=== PATIENT | male | born 1955 | race Caucasian/White ===

== ENCOUNTER 2023-07-19 15:38 | Inpatient (IN) | payer MEDICAID ==
[~2023-07-19] VITALS: Ht 175.3 cm; Wt 75.5 kg
[2023-07-19 16:23] LABS: BASOPHILS % (AUTO) 0.2 % (0.0-2.0); EOSINOPHILS % (AUTO) 0.1 % (0.0-6.0); HEMATOCRIT 41 % (39-51); HEMOGLOBIN 13.7 g/dL (13.5-17.5); LYMPHOCYTES # (AUTO) 0.8 K/uL (0.8-4.8); LYMPHOCYTES % (AUTO) 6.3 % (20.0-44.0); MEAN CORPUSCULAR HEMOGLOBIN 35 PG (26.0-33.0); MEAN CORPUSCULAR HGB CONC 34 g/dl (31.0-36.0); MEAN CORPUSCULAR VOLUME 103 fL (80-96); MONOCYTES # (AUTO) 2.1 K/uL (0.1-1.30); MONOCYTES % (AUTO) 15.6 % (2.0-12.0); NEUTROPHILS # (AUTO) 10.3 K/uL (1.8-8.9); NEUTROPHILS % (AUTO) 77.8 % (43.0-81.0); PLATELET COUNT (AUTO) 136 K/uL (150-450); RED BLOOD CELL COUNT(AUTO) 3.95 MIL/uL (4.5-6.0); RED CELL DISTRIBUTION WIDTH 13.2 % (11.5-15.0); WHITE BLOOD COUNT (AUTO) 13.3 K/uL (4.3-11.0)
[2023-07-19 16:35] LABS: CALCIUM, SERUM 8.5 mg/dL (8.5-10.1); CARBON DIOXIDE 30 mmol/L (21-32); CHLORIDE 102 mmol/L (98-107); CREATININE 1.8 mg/dL (0.6-1.3); GLUCOSE 120 mg/dL (74-106); POTASSIUM 4.5 mmol/L (3.5-5.1); SODIUM SERUM 138 mmol/L (136-145); UREA NITROGEN, BLOOD 69 mg/dL (7-18)
[2023-07-19 16:37] LABS: INR 0.97 (0.91-1.10); PARTIAL THROMBOPLASTIN TIME 26.5 SEC (24.3-34.3)
[2023-07-19 16:41] LABS: ALANINE AMINOTRANSFERASE 21 U/L (12-78); ALBUMIN 2.6 g/dL (3.4-5.0); ALKALINE PHOSPHATASE 46 U/L (46-116); ASPARTATE AMINOTRANSFERASE 21 U/L (15-37); BILIRUBIN,DIRECT 0.2 mg/dL (0.0-0.2); BILIRUBIN,TOTAL 0.5 mg/dL (0.2-1.0); TOTAL PROTEIN, SERUM 6.2 g/dL (6.4-8.2)
[2023-07-19 17:43] LABS: BAND % (MANUAL) 2 % (0.0-5.0); LYMPHOCYTES % (MANUAL) 15 % (16-48); MONOCYTES % (MANUAL) 14 % (0-11.0); NEUTROPHILS % (MANUAL) 69 (42-76); PLATELET ESTIMATE DECREASED
[2023-07-19] MEDS ORDERED: ACET325T53 PO (18:33)
[2023-07-19] MEDS ORDERED: ALBU2.5V38 IH (18:33)
[2023-07-19] MEDS ORDERED: LORA2TAB95 PO (18:33)
[2023-07-19] MEDS ORDERED: DONE10TA11 PO (18:33)
[2023-07-19] MEDS ORDERED: ASPI-1420 PO (18:33)
[2023-07-19] MEDS ORDERED: LORA2DIS4 IM (18:33)
[2023-07-19] MEDS ORDERED: AMLO-212 PO (18:33)
[2023-07-19] MEDS ORDERED: LEVE500T20 PO (18:34)
[2023-07-19] MEDS ORDERED: ALBU18HF2 IH (18:34)
[2023-07-19] MEDS ORDERED: MAGN400O6 PO (18:34)
[2023-07-19] MEDS ORDERED: BISA10SU11 RC (18:34)
[2023-07-19] MEDS ORDERED: ELVI1TAB3 PO (18:34)
[2023-07-19] MEDS ORDERED: FINA5TAB11 PO (18:34)
[2023-07-19] MEDS ORDERED: AMIN30LI2 PO (18:34)
[2023-07-19] MEDS ORDERED: LOSA1TAB15 PO (18:34)
[2023-07-19] MEDS ORDERED: POTA20TA83 PO (18:34)
[2023-07-19] MEDS ORDERED: PROP10TA10 PO (18:34)
[2023-07-19] MEDS ORDERED: LACO200T2 PO (18:34)
[2023-07-19] MEDS ORDERED: BENZ1TAB7 PO (18:34)
[2023-07-19] MEDS ORDERED: MAG30ORA14 PO (18:34)
[2023-07-19] MEDS ORDERED: URSO300C12 PO (18:34)
[2023-07-19] MEDS ORDERED: RISP2TAB5 PO (18:34)
[2023-07-19] MEDS ORDERED: DIVA-78 PO (18:34)
[2023-07-19] MEDS ORDERED: THIA100T88 PO (18:34)
[2023-07-19] MEDS ORDERED: ONDA-97 PO (18:34)
[2023-07-19] MEDS ORDERED: FOLI0.4T6 PO (18:34)
[2023-07-19] MEDS ORDERED: FURO-145 PO (18:34)
[2023-07-19] MEDS ORDERED: FERR325T23 PO (18:34)
[2023-07-19] MEDS ORDERED: CLON1TAB12 PO (18:34)
[2023-07-19] MEDS ORDERED: ATOR10TA PO (18:34)
[2023-07-19] MEDS ORDERED: LACT10SO5 PO (18:34)
[2023-07-19 20:31] LABS: APPEARANCE,URINE Clear (CLEAR); BILIRUBIN,URINE Negative (NEGATIVE); BLOOD, URINE Small Ery/uL (NEGATIVE); COLOR,URINE YELLOW (YELLOW); KETONES,URINE Negative (NEGATIVE); LEUKOCYTE ESTERASE ,URINE Trace (NEGATIVE); NITRITE, URINE Positive (NEGATIVE); PH,URINE 5.5 (5.0-8.0); PROTEIN,URINE Negative (NEGATIVE); UGLUCOSE Negative (NEGATIVE); UROBILINOGEN,URINE 0.2 EU/dL (0.2)
[2023-07-19 21:53] LABS: ADD URINE CULTURE YES; BACTERIA,URINE Many /HPF (None Seen); SQUAMOUS EPITHELIAL CELL,UR Few /HPF (None Seen)
[2023-07-19] MEDS ORDERED: Z GUARD REMEDY 4 OZ OINT TP PRN (23:00)
[2023-07-19] MEDS ORDERED: MAG HYDROX/AL HYDROX/SIMETH 30 ML UDC PO PRN (23:00)
[2023-07-19] MEDS ORDERED: MAGNESIUM HYDROXIDE 30 ML UDC PO PRN (23:00)
[2023-07-19] MEDS ORDERED: ONDANSETRON HCL/PF 4 MG/2 ML VIAL IVP PRN (23:00)
[2023-07-19] MEDS: IV 1/2NS 1000 ML 1,000 ML IV PRN (23:30)
[2023-07-20] VITALS: BP 104/63; TEMP 97.7; O2SAT 98
[2023-07-20] MEDS ORDERED: BISACODYL SUPP (10 MG) 10 MG/SUPP.RECT SUPP.RECT RC PRN (01:00)
[2023-07-20] MEDS ORDERED: MAG HYDROX PO PRN (01:00)
[2023-07-20] MEDS ORDERED: ACETAMINOPHEN 325 MG TABLET PO PRN (01:00)
[2023-07-20] MEDS ORDERED: ALUMINUM HYD PO PRN (01:00)
[2023-07-20] MEDS ORDERED: ALBUTEROL FS 2.5 MG/3 ML VIAL.NEB IH PRN (01:00)
[2023-07-20] MEDS ORDERED: SIMETH PO PRN (01:00)
[2023-07-20] MEDS ORDERED: AMLODIPINE BESYLATE 5 MG TABLET PO PRN (01:00)
[2023-07-20] MEDS ORDERED: [UNRECOGNIZED DRUG - OTHER] PO PRN (01:00)
[2023-07-20] MEDS ORDERED: ALBUTEROL SULFATE 8 GM HFA.AER.AD IH PRN (01:00)
[2023-07-20] MEDS: LORAZEPAM INJ 2 MG/ML VIAL IV PRN (03:40)
[2023-07-20 04:00] VITALS: BP 139/66; TEMP 98.1; O2SAT 96
[2023-07-20 07:10] LABS: BASOPHILS % (AUTO) 0.1 % (0.0-2.0); EOSINOPHILS # (AUTO) 0.1 K/uL (0.0-0.7); EOSINOPHILS % (AUTO) 0.9 % (0.0-6.0); HEMATOCRIT 36 % (39-51); HEMOGLOBIN 12.6 g/dL (13.5-17.5); LYMPHOCYTES # (AUTO) 1.7 K/uL (0.8-4.8); LYMPHOCYTES % (AUTO) 13.7 % (20.0-44.0); MEAN CORPUSCULAR HEMOGLOBIN 36 PG (26.0-33.0); MEAN CORPUSCULAR HGB CONC 35 g/dl (31.0-36.0); MEAN CORPUSCULAR VOLUME 104 fL (80-96); MONOCYTES # (AUTO) 1.9 K/uL (0.1-1.30); MONOCYTES % (AUTO) 15.3 % (2.0-12.0); NEUTROPHILS # (AUTO) 8.5 K/uL (1.8-8.9); PLATELET COUNT (AUTO) 129 K/uL (150-450); RED BLOOD CELL COUNT(AUTO) 3.51 MIL/uL (4.5-6.0); WHITE BLOOD COUNT (AUTO) 12.1 K/uL (4.3-11.0)
[2023-07-20] MEDS: PANTOPRAZOLE 40 MG TABLET.DR PO SCH (07:30)
[2023-07-20 07:59] LABS: CALCIUM, SERUM 8.2 mg/dL (8.5-10.1); CREATININE 1.5 mg/dL (0.6-1.3); MAGNESIUM 2.4 mg/dL (1.8-2.4); PHOSPHORUS 2.8 mg/dL (2.5-4.9); POTASSIUM 4.2 mmol/L (3.5-5.1)
[2023-07-20 08:00] VITALS: BP 145/77; TEMP 98.4; O2SAT 98
[2023-07-20 08:13] LABS: THYROID STIMULATING HORMONE 2.533 uIU/mL (0.358-3.74)
[2023-07-20] MEDS: BENZTROPINE MESYLATE (1 MG) 1 MG TABLET PO SCH (09:00)
[2023-07-20] MEDS: DONEPEZIL 5 MG TABLET PO SCH (09:00)
[2023-07-20] MEDS: FERROUS SULFATE (325 MG) 325 MG/TAB TABLET PO SCH (09:00)
[2023-07-20] MEDS: DIVALPROEX SODIUM 500 MG TABLET.DR PO SCH (09:00)
[2023-07-20] MEDS: risperiDONE 1 MG TABLET PO SCH (09:00)
[2023-07-20] MEDS: FINASTERIDE (5 MG) 5 MG TABLET PO SCH (09:00)
[2023-07-20] MEDS: PROPRANOLOL HCL 10 MG TABLET PO SCH (09:00)
[2023-07-20] MEDS: LACOSAMIDE 50 MG TABLET PO SCH (09:00)
[2023-07-20] MEDS: ASPIRIN EC 81 MG TABLET.DR PO SCH (09:00)
[2023-07-20] MEDS: URSODIOL 300 MG CAPSULE PO SCH (09:00)
[2023-07-20] MEDS: LEVETIRACETAM (250 MG) 250 MG TABLET PO SCH (09:00)
[2023-07-20] MEDS: THIAMINE HCL 100 MG TABLET PO SCH (09:00)
[2023-07-20] MEDS: PROSOURCE / PROSTAT (PYXIS) 30 ML UDC PO SCH (09:00)
[2023-07-20] MEDS: FOLIC ACID 1 MG TABLET PO SCH (09:00)
[2023-07-20] MEDS: HEPARIN SODIUM, PORCINE 5000 UNITS/1 ML VIAL SQ SCH (09:47)
[2023-07-20 12:00] VITALS: BP 123/68; TEMP 98.2; O2SAT 95
[2023-07-20] MEDS: LORAZEPAM INJ 2 MG/ML VIAL IV ONE (12:13)
[2023-07-20] MEDS: LACTULOSE 10 G/15 ML UDC (PYXIS) PO SCH (13:15)
[2023-07-20] MEDS: CEFTRIAXONE 1 G in IV D5W 50 ML IV SCH (14:28)
[2023-07-20 16:00] VITALS: BP 139/100; TEMP 98; O2SAT 97
[2023-07-20] MEDS: MAGNESIUM HYDROXIDE 30 ML UDC PO SCH (17:45)
[2023-07-20 18:53] LABS: CREATININE, URINE 133.9 MG/DL (30.0-125.0)
[2023-07-20 20:00] VITALS: BP 122/65; TEMP 98.4; O2SAT 97
[2023-07-20 20:33] LABS: APPEARANCE,URINE SLIGHTLY CLOUDY (CLEAR); BILIRUBIN,URINE NEGATIVE (NEGATIVE); BLOOD, URINE 1+ Ery/uL (NEGATIVE); COLOR,URINE YELLOW (YELLOW); KETONES,URINE NEGATIVE (NEGATIVE); LEUKOCYTE ESTERASE ,URINE 1+ (NEGATIVE); NITRITE, URINE NEGATIVE (NEGATIVE); PROTEIN,URINE NEGATIVE (NEGATIVE); UGLUCOSE NEGATIVE (NEGATIVE)
[2023-07-20 20:40] LABS: EOSINOPHIL,URINE None Seen
[2023-07-20 20:45] LABS: ADD URINE CULTURE YES; BACTERIA,URINE 4+ /HPF (None Seen); SQUAMOUS EPITHELIAL CELL,UR Few /HPF (None Seen); WBC,URINE 51-80 /HPF (0-3)
[2023-07-20] MEDS: ATORVASTATIN 10 MG TABLET PO SCH (22:23)
[2023-07-21 04:00] VITALS: BP 130/63; TEMP 98.5; O2SAT 96
[2023-07-21 07:09] LABS: BASOPHILS % (AUTO) 0.2 % (0.0-2.0); EOSINOPHILS # (AUTO) 0.2 K/uL (0.0-0.7); EOSINOPHILS % (AUTO) 2.1 % (0.0-6.0); HEMATOCRIT 34 % (39-51); HEMOGLOBIN 11.9 g/dL (13.5-17.5); LYMPHOCYTES # (AUTO) 2.3 K/uL (0.8-4.8); LYMPHOCYTES % (AUTO) 26.7 % (20.0-44.0); MEAN CORPUSCULAR HEMOGLOBIN 36 PG (26.0-33.0); MEAN CORPUSCULAR HGB CONC 35 g/dl (31.0-36.0); MEAN CORPUSCULAR VOLUME 103 fL (80-96); MONOCYTES # (AUTO) 1.1 K/uL (0.1-1.30); PLATELET COUNT (AUTO) 130 K/uL (150-450); RED BLOOD CELL COUNT(AUTO) 3.29 MIL/uL (4.5-6.0); RED CELL DISTRIBUTION WIDTH 12.8 % (11.5-15.0); WHITE BLOOD COUNT (AUTO) 8.5 K/uL (4.3-11.0)
[2023-07-21 08:00] VITALS: BP 140/66; TEMP 97.9; O2SAT 95
[2023-07-21 08:00] LABS: BILIRUBIN,TOTAL 0.5 mg/dL (0.2-1.0); CALCIUM, SERUM 7.7 mg/dL (8.5-10.1); MAGNESIUM 2.3 mg/dL (1.8-2.4); PHOSPHORUS 2.8 mg/dL (2.5-4.9); TOTAL PROTEIN, SERUM 5.5 g/dL (6.4-8.2)
[2023-07-21] MEDS: VANCOMYCIN 1 GM in IV D5W 250 ML IV SCH (12:40)
[2023-07-21 16:15] VITALS: BP 145/97; TEMP 97.9; O2SAT 93
[2023-07-21] MEDS: ENSURE ENLIVE CHOC 237 ML CAN PO SCH (17:16)
[2023-07-21 20:00] VITALS: BP 114/72; TEMP 98; O2SAT 99
[2023-07-22 04:00] VITALS: BP 116/70; TEMP 98.6; O2SAT 99
[2023-07-22 06:03] VITALS: O2SAT 98
[2023-07-22 06:43] LABS: BASOPHILS % (AUTO) 0.1 % (0.0-2.0); EOSINOPHILS # (AUTO) 0.2 K/uL (0.0-0.7); EOSINOPHILS % (AUTO) 2.3 % (0.0-6.0); HEMATOCRIT 34 % (39-51); HEMOGLOBIN 12.1 g/dL (13.5-17.5); LYMPHOCYTES # (AUTO) 1.3 K/uL (0.8-4.8); LYMPHOCYTES % (AUTO) 18.7 % (20.0-44.0); MEAN CORPUSCULAR HEMOGLOBIN 36 PG (26.0-33.0); MEAN CORPUSCULAR HGB CONC 35 g/dl (31.0-36.0); MEAN CORPUSCULAR VOLUME 101 fL (80-96); MONOCYTES # (AUTO) 0.9 K/uL (0.1-1.30); MONOCYTES % (AUTO) 12.2 % (2.0-12.0); NEUTROPHILS # (AUTO) 4.6 K/uL (1.8-8.9); NEUTROPHILS % (AUTO) 66.7 % (43.0-81.0); PLATELET COUNT (AUTO) 161 K/uL (150-450); RED BLOOD CELL COUNT(AUTO) 3.39 MIL/uL (4.5-6.0); RED CELL DISTRIBUTION WIDTH 12.7 % (11.5-15.0)
[2023-07-22 06:54] LABS: CALCIUM, SERUM 8.2 mg/dL (8.5-10.1); CREATININE 0.9 mg/dL (0.6-1.3); MAGNESIUM 2.5 mg/dL (1.8-2.4); POTASSIUM 3.8 mmol/L (3.5-5.1)
[2023-07-22 09:00] VITALS: BP 168/66; TEMP 97.3; O2SAT 98
[2023-07-22 09:09] LABS: PTH, INTACT 16 pg/mL (15-65)
[2023-07-22 10:07] LABS: *SPE A/G RATIO 0.9 (0.7-1.7); *SPE ALBUMIN 2.3 g/dL (2.9-4.4); *SPE ALPHA-1-GLOBULIN 0.4 g/dL (0.0-0.4); *SPE ALPHA-2-GLOBULIN 0.8 g/dL (0.4-1.0); *SPE BETA GLOBULIN 0.7 g/dL (0.7-1.3); *SPE GLOBULIN, TOTAL 2.6 g/dL (2.2-3.9); *SPE M-SPIKE Not Observed g/dL (Not Observed); *SPE PROTEIN TOTAL 4.9 g/dL (6.0-8.5); *SPEGAMMA GLOBULIN 0.6 g/dL (0.4-1.8)
[2023-07-22 17:00] VITALS: BP 151/60; TEMP 98.2; O2SAT 95
[2023-07-22 20:00] VITALS: BP 148/67; TEMP 98.6; O2SAT 95
[2023-07-23 04:00] VITALS: BP 127/69; TEMP 98.6; O2SAT 98
[2023-07-23 08:00] VITALS: BP 131/71; TEMP 97.8; O2SAT 98
[2023-07-23 08:33] LABS: CALCIUM, SERUM 7.5 mg/dL (8.5-10.1); CREATININE 0.8 mg/dL (0.6-1.3)
[2023-07-23 11:45] VITALS: O2SAT 98
[2023-07-23 12:10] LABS: HBSAG SCREEN Negative (Negative); HEPATITIS A AB, IgM Negative (Negative); HEPATITIS B CORE AB, IgM Negative (Negative)
[2023-07-23 16:00] VITALS: BP 151/72; TEMP 97.8; O2SAT 98
[2023-07-23 20:00] VITALS: BP 150/81; TEMP 97.5; O2SAT 100
[2023-07-23] MEDS: risperiDONE 1 MG TABLET PO SCH (21:21)
[2023-07-23 21:38] VITALS: O2SAT 97
[2023-07-24 04:00] VITALS: BP 147/90; TEMP 97.5; O2SAT 94
[2023-07-24 07:57] LABS: BASOPHILS % (AUTO) 0.4 % (0.0-2.0); EOSINOPHILS # (AUTO) 0.3 K/uL (0.0-0.7); EOSINOPHILS % (AUTO) 4.1 % (0.0-6.0); HEMATOCRIT 35 % (39-51); HEMOGLOBIN 12.2 g/dL (13.5-17.5); LYMPHOCYTES # (AUTO) 1.4 K/uL (0.8-4.8); MEAN CORPUSCULAR HEMOGLOBIN 36 PG (26.0-33.0); MEAN CORPUSCULAR HGB CONC 35 g/dl (31.0-36.0); MEAN CORPUSCULAR VOLUME 103 fL (80-96); MONOCYTES # (AUTO) 0.9 K/uL (0.1-1.30); MONOCYTES % (AUTO) 14.3 % (2.0-12.0); NEUTROPHILS # (AUTO) 3.5 K/uL (1.8-8.9); NEUTROPHILS % (AUTO) 58.2 % (43.0-81.0); PLATELET COUNT (AUTO) 181 K/uL (150-450); RED BLOOD CELL COUNT(AUTO) 3.42 MIL/uL (4.5-6.0); RED CELL DISTRIBUTION WIDTH 12.8 % (11.5-15.0); WHITE BLOOD COUNT (AUTO) 6.1 K/uL (4.3-11.0)
[2023-07-24 08:00] VITALS: BP 151/76; TEMP 97.6; O2SAT 98
[2023-07-24 08:25] LABS: CALCIUM, SERUM 8.2 mg/dL (8.5-10.1); CREATININE 0.9 mg/dL (0.6-1.3); PHOSPHORUS 3.5 mg/dL (2.5-4.9); POTASSIUM 3.9 mmol/L (3.5-5.1)
[2023-07-24] MEDS: OLANZAPINE 10 MG VIAL IM ONE (15:31)
[2023-07-24 16:00] VITALS: BP 136/90; TEMP 98; O2SAT 97
[2023-07-24 18:11] LABS: ALBUMIN 2.1 g/dL (3.4-5.0); BILIRUBIN,DIRECT 0.1 mg/dL (0.0-0.2); BILIRUBIN,TOTAL 0.4 mg/dL (0.2-1.0); TOTAL PROTEIN, SERUM 5.7 g/dL (6.4-8.2)
[2023-07-24 20:00] VITALS: BP 152/75; TEMP 97.9; O2SAT 97
[2023-07-24] MEDS: CEPHALEXIN MONOHYDRATE 500 MG CAPSULE PO SCH (20:58)
[2023-07-25 06:09] VITALS: BP 155/54; TEMP 98; O2SAT 97
[2023-07-25 07:49] LABS: CALCIUM, SERUM 7.9 mg/dL (8.5-10.1); CREATININE 0.9 mg/dL (0.6-1.3); POTASSIUM 3.8 mmol/L (3.5-5.1)
[2023-07-25 08:00] VITALS: BP 103/47; TEMP 97.9
[2023-07-25 16:00] VITALS: BP 130/65; TEMP 97.5
[2023-07-25 20:19] VITALS: BP 165/74; TEMP 97.7; O2SAT 96
[2023-07-25] MEDS: DIVALPROEX SODIUM 500 MG TABLET.DR PO SCH (20:20)
[2023-07-25] MEDS: ZOLPIDEM TARTRATE 5 MG TABLET PO PRN (21:59)
[2023-07-26 04:18] VITALS: BP 148/80; TEMP 98; O2SAT 96
[2023-07-26 07:18] LABS: CALCIUM, SERUM 7.7 mg/dL (8.5-10.1); CREATININE 0.8 mg/dL (0.6-1.3); POTASSIUM 3.9 mmol/L (3.5-5.1)
[2023-07-26 08:00] VITALS: BP 117/70; TEMP 97.9; O2SAT 100
[2023-07-26 16:00] VITALS: BP 112/61; TEMP 98.4; O2SAT 96
[2023-07-26 20:00] VITALS: BP 145/66; TEMP 97.7; O2SAT 97
[2023-07-27 04:00] VITALS: BP 135/71; TEMP 98.1; O2SAT 96
[2023-07-27 08:00] VITALS: BP 148/61; TEMP 97.7; O2SAT 96
[2023-07-27] MEDS: DIVALPROEX SODIUM 125 MG CAP.SPRINK PO SCH (14:31)
[2023-07-27 17:56] VITALS: BP 153/72; TEMP 98.5; O2SAT 96
[2023-07-27 20:00] VITALS: BP 142/94; TEMP 98.6; O2SAT 98
[2023-07-28 04:28] VITALS: BP 132/83; TEMP 98.7; O2SAT 97
[2023-07-28 08:00] VITALS: BP 135/64; TEMP 97.3; O2SAT 97
[2023-07-28] MEDS ORDERED: DIVA125C2 PO (08:49)
[2023-07-28 16:00] VITALS: BP 125/99; TEMP 98.1; O2SAT 97
[2023-07-28 20:00] VITALS: BP 137/68; TEMP 98.9; O2SAT 96
[2023-07-29 04:00] VITALS: BP 137/68; TEMP 98.5; O2SAT 96
[2023-07-29 08:00] VITALS: BP 124/61; TEMP 98.1; O2SAT 99
[2023-07-29 16:00] VITALS: BP 141/81; TEMP 97.9; O2SAT 99
[2023-07-29 20:43] VITALS: BP 115/76; TEMP 98.4; O2SAT 99
[2023-07-30 04:41] VITALS: BP 107/75; TEMP 97.9; O2SAT 96
[2023-07-30 08:00] VITALS: BP 137/62; TEMP 98.1; O2SAT 98
[2023-07-30 15:00] VITALS: BP 137/62; TEMP 98.1; O2SAT 98
[2023-07-30 16:00] VITALS: BP 137/62; TEMP 98.1; O2SAT 98
[2023-07-30 20:00] VITALS: BP 129/84; TEMP 98; O2SAT 98
[2023-07-30] MEDS ORDERED: LACOSAMIDE 50 MG TABLET ONE (21:31)
[2023-07-31 04:00] VITALS: BP 130/80; TEMP 98; O2SAT 100
[2023-07-31 08:00] VITALS: BP 160/68; TEMP 98.2; O2SAT 100
[2023-07-31] MEDS ORDERED: hydrALAZINE HCL IV 20 MG VIAL IV PRN (13:00)
[2023-07-31] MEDS: LEVETIRACETAM (500MG) 500 MG in IV NS 0.9% 100 ML IV SCH (13:47)
[2023-07-31 16:00] VITALS: BP 153/72; TEMP 97.9; O2SAT 95
[2023-07-31 20:00] VITALS: BP 132/63; TEMP 98.4; O2SAT 97
[2023-07-31 20:09] VITALS: BP 132/63; TEMP 98.4; O2SAT 97
[2023-07-31] MEDS: LACOSAMIDE 200 MG in IV NS 0.9% 50 ML IV SCH (20:16)
[2023-07-31] MEDS ORDERED: LACOSAMIDE 200 MG in IV NS 0.9% 50 ML IV SCH (21:00)
[2023-08-01 04:09] VITALS: BP 135/91; TEMP 98.4; O2SAT 99
[2023-08-01 08:00] VITALS: BP 120/74; TEMP 98.4; O2SAT 98
[2023-08-01 12:34] VITALS: BP 129/84; TEMP 98; O2SAT 98
[2023-08-01 20:09] VITALS: BP 146/58; TEMP 99.3; O2SAT 97
[2023-08-01] MEDS: ACETAMINOPHEN 325 MG TABLET PO PRN (22:19)
[2023-08-02 04:09] VITALS: BP 132/72; TEMP 97.7; O2SAT 97
[2023-08-02 08:00] VITALS: BP 148/58; TEMP 97.8; O2SAT 98
[2023-08-02 16:00] VITALS: BP 119/71; TEMP 98.1; O2SAT 92
[2023-08-02 20:09] VITALS: BP 143/59; TEMP 97.9; O2SAT 92
[2023-08-03 04:09] VITALS: BP 133/59; TEMP 97.9; O2SAT 92
[2023-08-03 08:00] VITALS: BP 142/51; TEMP 97.5; O2SAT 95
[2023-08-04 20:09] VITALS: BP 96/69; TEMP 97.9; O2SAT 100
[2023-08-05 04:09] VITALS: BP 98/69; TEMP 97.9; O2SAT 100
[2023-08-05 12:09] VITALS: BP 132/72; TEMP 98; O2SAT 100
[2023-08-05] MEDS ORDERED: LACOSAMIDE 50 MG TABLET PO SCH (21:00)
[2023-08-05] MEDS ORDERED: LEVETIRACETAM (250 MG) 250 MG TABLET PO SCH (21:00)
== END 2023-08-05 19:07 | DRG 463 ==
LOC: ER 15:45 → ICU 20:24 → TELE1 20:53 → MEDSG1 07-20 08:17
PROVIDERS: ADMIT Student in an Organized Health Care Education/Training Program; ATTEND Nurse Practitioner Acute Care
DX: N39.0 Urinary tract infection, site not specified (principal); N17.0 Acute kidney failure with tubular necrosis; G93.41 Metabolic encephalopathy; K76.82 Hepatic encephalopathy; E44.1 Mild protein-calorie malnutrition; R78.81 Bacteremia; D69.6 Thrombocytopenia, unspecified; F03.911 Unspecified dementia, unspecified severity, with agitation; F29 Unspecified psychosis not due to a substance or known physiological condition; E86.9 Volume depletion, unspecified; G40.909 Epilepsy, unspecified, not intractable, without status epilepticus; K74.60 Unspecified cirrhosis of liver; D64.9 Anemia, unspecified; E66.01 Morbid (severe) obesity due to excess calories; E78.5 Hyperlipidemia, unspecified; Z88.2 Allergy status to sulfonamides; N40.0 Benign prostatic hyperplasia without lower urinary tract symptoms; M89.8X9 Other specified disorders of bone, unspecified site; Z68.24 Body mass index [BMI] 24.0-24.9, adult; I12.9 Hypertensive chronic kidney disease with stage 1 through stage 4 chronic kidney disease, or unspecified chronic kidney disease; N18.9 Chronic kidney disease, unspecified; F39 Unspecified mood [affective] disorder; F03.94 Unspecified dementia, unspecified severity, with anxiety; R47.02 Dysphasia; Z79.899 Other long term (current) drug therapy
CPT/HCPCS: 36415; 70450-TC; 71045-TC; 76770-TC; 80048-TC; 80053-TC; 80076-TC; 80164-TC; 81001; 82140-TC; 82550-TC; 82570-TC; 83605-TC; 83735-TC; 83970; 84100-TC; 84155; 84165; 84300-TC; 84443-TC; 84484-TC; 85025-TC; 85730-TC; 87040-TC; 87081-TC; 87086-TC; 92526; 92611-TC; 94760-TC; 94799-TC; 97110-TC; 97112-TC; 97116-TC; 97530-TC; A4223; G0378; J0696; J1644; J1953; J2060; J3370; J3490; J7030; J7050; J7060